=== PATIENT | female | born 1990 ===

== ENCOUNTER 2021-05-10 12:30 | Inpatient (IN) | payer OTHER ==
[~2021-05-10] VITALS: Ht 165.1 cm; Wt 2.7 kg
[2021-05-23] MEDS ORDERED: PRENATAL TABLE1 EAC1 PO (09:14)
[2021-05-23] MEDS ORDERED: IRON325 MG PO (09:15)
[2021-05-24] MEDS ORDERED: FOLIC ACID1 MG (10:30)
== END 2021-05-25 11:16 | disposition home or self-care (01) | DRG 768 ==
LOC: LDR 05-23 08:15 → SURG-SUITE 05-23 10:42 → OB/GYN 05-24 12:30 → SURG-SUITE 05-25 11:16
PROVIDERS: ADMIT Obstetrics & Gynecology Maternal & Fetal Medicine; ATTEND Obstetrics & Gynecology Maternal & Fetal Medicine
PROC: 10D07Z6 Extraction of Products of Conception, Vacuum, Via Natural or Artificial Opening (ICD-10-PCS; principal; 2021-05-23)
PROC: 0DQR0ZZ Repair Anal Sphincter, Open Approach (ICD-10-PCS; 2021-05-23)
PROC: 0W8NXZZ Division of Female Perineum, External Approach (ICD-10-PCS; 2021-05-23)
PROC: 4A1HXCZ Monitoring of Products of Conception, Cardiac Rate, External Approach (ICD-10-PCS; 2021-05-23)
DX: O70.21 Third degree perineal laceration during delivery, IIIa (principal); Z37.0 Single live birth; Z3A.39 39 weeks gestation of pregnancy; Z20.822 Contact with and (suspected) exposure to COVID-19

== ENCOUNTER 2021-05-20 10:02 | Outpatient (CLI) | payer OTHER | END 2021-05-20 11:21 | disposition home or self-care (01) | LOC: NST 10:02 | PROVIDERS: ATTEND Obstetrics & Gynecology Maternal & Fetal Medicine | DX: Z34.83 Encounter for supervision of other normal pregnancy, third trimester (principal) ==